=== PATIENT | male | born 1965 | race Caucasian/White ===

== ENCOUNTER → 2016-09-03 | Outpatient (CLI) | payer SELFPAY ==
--- NOTE | 2016-09-03 11:50 | DI ---
US ABDOMEN LIMITED,09/03/2016 9:41 AM: Clinical History: Right upper quadrant abdominal pain Previous Exam: None at this facility. Findings: Multiple grayscale and color Doppler sonographic images are obtained through the right upper quadrant , and demonstrate diffuse fatty infiltration of the liver. The pancreas is not well seen. The gallbladder is normal with the gallbladder wall measuring 3 mm. Negative sonographic Mccormack's sig n was obtained. There were no stones. Common bile duct measures 4 mm. ] Measures 9.7 cm in length without hydronephrosis nor nephrolithiasis. There is a 1.5 cm simple renal cyst within the upper pole. The aorta is normal. Impression: Diffuse fatty infiltration of the liver otherwise unremarkable.
== END ==
LOC: US 09:38
PROVIDERS: ATTEND Nurse Practitioner Family
DX: R10.11 Right upper quadrant pain (principal); R11.2 Nausea with vomiting, unspecified; K76.0 Fatty (change of) liver, not elsewhere classified
CPT/HCPCS: 76705